=== PATIENT | male | born 1950 | race Caucasian/White ===

== ENCOUNTER → 2019-09-25 10:32 | Outpatient (BNVA) | payer MEDICARE, OTHER, SELFPAY | PROVIDERS: PCP Internal Medicine Geriatric Medicine; Referring Provider Internal Medicine Geriatric Medicine; Visit Provider Nurse Practitioner | DX: G25.81 Restless legs syndrome (principal); Z87.891 Personal history of nicotine dependence | CPT/HCPCS: 99204; 99999 ==